=== PATIENT | female | born 1995 | race Caucasian/White ===

== ENCOUNTER 2018-02-10 08:49 | Inpatient (IN) ==
[2018-02-10] MEDS ORDERED: 0.9 % SODIUM CHLORIDE 1,000 ML IV ONE (09:08)
[2018-02-10] MEDS ORDERED: INSULIN REGULAR, HUMAN 1 UNIT/0.01 ML UNIT IV ONE ×2 (09:36→12:29)
--- NOTE | 2018-02-10 09:40 | Emergency Department Note ---
Nausea/Vomiting/Diarrhea HPI - General Chief complaint: Nausea/Vomiting/Diarrhea Stated complaint: Ran out of insulin, vomiting Time Seen by Provider: 02/10/18 09:34 Source: patient Mode of arrival: ambulatory Limitations: no limitations - History of Present Illness HPI Narrative: This is a type I diabetic that ran out of her insulin 3 days ago. He says some nausea and vomiting and abdominal discomfort. The ER her blood sugars over 700 and her TCO2 is 9. She is in DKA we will start treatment for this. She is pretty sedated and sleepy and not talking a lot. She has a lot of track concepcion and they are having a little trouble getting an IV started. - Related Data Home Medications Medication Instructions Recorded Confirmed Gabapentin [Neurontin] 300 mg PO TID 09/10/17 09/10/17 Naprosyn 01/24/18 Previous Rx's Medication Instructions Recorded Accu-Chek 1 each FS ACHS strip 03/20/15 Insulin Glargine, Human [Lantus] 35 unit SQ BID unit 09/03/15 Allergies Allergy/AdvReac Type Severity Reaction Status Date / Time ibuprofen Allergy Mild Hives Verified 02/10/18 08:49 Penicillins Allergy Mild Rash Verified 02/10/18 08:49 Review of Systems All systems ED: reviewed and negative except as stated. Past Medical History - Past Medical History Medical history: Reports: DM, GERD, other (Addiction and substance abuse) Psychiatric history: Reports: anxiety, depression Surgical history ED: Reports: other - Social History smoking status: Current every day smoker Alcohol use: Reports: Occasionally Drug use: Reports: methamphetamine Physical Exam Limitations: no limitations General appearance: in no apparent distress, lethargic Head: atraumatic, normocephalic Eye: Present: normal appearance ENT: mucous membranes dry Neck: Present: normal inspection Chest: Present: normal inspection Respiratory: Present: normal lung sounds bilaterally Cardiovascular: Present: regular rate, normal rhythm, normal heart sounds Abdominal: Present: soft. Absent: distention, tenderness Neurological: Present: alert Psychiatric: Present: normal affect, normal mood Skin: Present: warm, dry, intact Course Vital Signs Temperature 96.5 F L 02/10/18 08:49 Pulse Rate 120 H 02/10/18 08:49 Respiratory Rate 20 02/10/18 08:49 Blood Pressure 129/71 02/10/18 08:49 Pulse Oximetry (%) 100 02/10/18 08:49 Temperature 96.5 F L 02/10/18 08:49 Pulse Rate 127 H 02/10/18 11:27 Respiratory Rate 17 02/10/18 11:27 Blood Pressure 104/60 02/10/18 11:27 Pulse Oximetry (%) 99 02/10/18 11:27 Nausea/Vomiting/Diarrhea - [facility] Narrative Medical decision making narrative: This patient with diabetic ketoacidosis had to have a central line placed in order to get IV access. She then was given normal saline insulin 10 units IV and started on a 7 unit/h drip. Discussed case with Dr. Cotter and she will be admitted to the ICU. - Lab Data Lab results reviewed: Yes I reviewed the patient's lab results. Result diagrams: 02/10/18 09:15 02/10/18 09:15 Lab Results 02/10/18 02/10/18 Range/Units 09:15 09:15 WBC 19.2 H (4.5-11.0) K/mcL RBC 5.11 (4.00-5.20) M/mcL Hgb 15.4 H (12.0-15.0) g/dL Hct 47.5 (36.0-48.0) % POC Hct 51.0 H (36.0-48.0) % MCV 93.1 (80.0-100.0) fL MCH 30.1 (26.0-34.0) pg MCHC 32.3 (31.0-36.0) g/dL RDW 12.9 (11.5-14.5) % Plt Count 628 H (140-440) K/mcL MPV 8.8 (7.4-10.4) fL Gran % 82.0 H (38.0-78.0) % Lymph % (Auto) 15.0 L (15.5-49.0) % [place] % (Auto) 2.2 (1.0-12.0) % Eos % (Auto) 0 (0.0-7.0) % Baso % (Auto) 0.8 (0.0-2.0) % Gran # 15.7 H (1.8-8.0) K/mcL Lymph # (Auto) 2.9 (1.5-4.8) K/mcL [place] # (Auto) 0.4 (0.1-0.9) K/mcL Eos # (Auto) 0 (0.0-0.7) K/mcL Baso # (Auto) 0.2 (0.0-0.3) K/mcL POC Sodium 123 L (133-145) mmol/L Sodium 125 L (133-145) mmol/L POC Potassium 4.9 (3.3-5.1) mmol/L Potassium 5.1 (3.3-5.1) mmol/L POC Chloride 84 L (96-108) mmol/L Chloride 69 L (96-108) mmol/L Carbon Dioxide 6 L* (22-30) mmol/L POC Total CO2 9 L* (22-30) mmol/L Anion Gap TNP POC BUN 38 H (6-20) mg/dl BUN 37 H (6-20) mg/dl Creatinine 1.6 H (0.6-1.1) mg/dl POC Creatinine 1.1 (0.6-1.1) mg/dl GFR Calculation 45 Glucose 1119 H* (70-105) mg/dL POC Glucose > 700 H* (70-105) mg/dL Calcium 10.7 H (8.6-10.4) mg/dl POC WB Ioniz Calcium 1.16 (1.16-1.32) mmol/L Total Bilirubin 1.0 (0.0-1.0) mg/dL AST 23 (0-37) U/l ALT 37 (0-40) U/l Alkaline Phosphatase 199 H (39-117) U/L Total Protein 8.8 H (5.9-8.4) gm/dL Albumin 4.0 (3.2-5.2) gm/dL Globulin 4.8 H (2.2-3.7) gm/dL Albumin/Globulin Ratio 0.8 L (1.0-2.3) Beta-Hydroxybutyrate 15.80 H (< 0.27) mmol/L Disposition Pt seen by REIMBURSEMENT REP/PA only: No Clinical Impression: DKA (diabetic ketoacidoses) Disposition: Xfer As Inpt ([facility]) Condition: Fair Time of Disposition: 11:35
[2018-02-10] MEDS ORDERED: INSULIN REGULAR, HUMAN 50 UNIT in 0.9 % SODIUM CHLORIDE 99.5 ML IV SCH ×2 (09:45→12:57)
[2018-02-10 10:00] LABS: Basophils # (Auto) 0.2 K/mcL (0.0-0.3); Basophils % (Auto) 0.8 % (0.0-2.0); Eosinophils # (Auto) 0 K/mcL (0.0-0.7); Eosinophils % (Auto) 0 % (0.0-7.0); Lymphocytes # (Auto) 2.9 K/mcL (1.5-4.8); Mean Cell Volume 93.1 fL (80.0-100.0); Mean Corpuscular HGB Conc 32.3 g/dL (31.0-36.0); Mean Corpuscular Hemoglobin 30.1 pg (26.0-34.0); Monocytes # (Auto) 0.4 K/mcL (0.1-0.9); Monocytes % (Auto) 2.2 % (1.0-12.0); Platelet Count 628 K/mcL (140-440); RBC 5.11 M/mcL (4.00-5.20); Red Cell Distribution Width 12.9 % (11.5-14.5)
[2018-02-10] MEDS ORDERED: 0.9 % SODIUM CHLORIDE 10 ML SYRINGE IV PRN (10:20)
[2018-02-10] MEDS ORDERED: INSULIN REGULAR, HUMAN 50 UNIT in 0.9 % SODIUM CHLORIDE 99.5 ML IV ONE (10:30)
--- NOTE | 2018-02-10 10:31 | Procedure Note ---
Procedures - Central Line Placement Right SC Consent obtained: verbal consent, written consent Date of Procedure: 02/10/18 Time out performed: Yes Patient placed on monitor/pulse ox: Yes MD prep: mask, sterile gown, sterile gloves, cap Central line prep: 2% Chlorhexidine scrub (X3) Local anesthesia used: lidocaine 1% Amount of anesthesia used (mls): 5 Ultrasound used for placement: No Central line lumen inserted: quad, 16 cm Post procedure: sutured in place, good blood return, all ports aspirated, flushed, capped, sterile dressing applied Post procedure x-ray: other (awaiting results of CXR) Patient tolerated procedure: well, no complications Complications: none Additional comments: emergent call from ED for central MALU for DKA attempts at PIV by er staff unsuccessful ED MD had not attempted CVC at my arrival, pt not on pulse ox, bedrails down and unattended. pt severely dehydrated with AMS
[2018-02-10 10:42] LABS: ALT/SGPT 37 U/l (0-40); Albumin/Globulin Ratio 0.8 (1.0-2.3); Alkaline Phosphatase 199 U/L (39-117); Blood Urea Nitrogen 37 mg/dl (6-20)
[2018-02-10] MEDS ORDERED: LACTATED RINGERS 1,000 ML IV ONE (11:15)
--- NOTE | 2018-02-10 11:37 | Internal Med History&Physical ---
Medical - H&P: [facility] Patient information: Note initiated : 02/10/18 at 11:35 am Service Date, if different from initiated Date: [] Patient: Caryn Leyva a 22 y/o F admitted on for Ran Out Of Insulin, Vomiting. Chief Complaint: [] History of present illness: Ms. Leyva is a 22 year old F With history of DKA and substance abuse who was brought in by her friend. History is obtained from charts and a little bit from patient the patient is poorly responsive this time and will give accurate history. Reportedly patient ran out of insulin 3 days ago and in discussing this with the patient sounds like she was trying to get a hold of the physician. She does admit to using methamphetamines IV 3 days ago. She presented ED after also having some nausea vomiting. She is quite lethargic. Her blood glucose was 1100 with a bicarb of 6. She has a significant needle track marking in her upper extremities. She says she also uses legs and possibly neck at one point. Multiple peripheral IV sticks were attempted and subsequently a central line was placed by anesthesia. She was given IV fluid bolus and started on insulin drip. Review of Systems: Difficult to obtain given patient's current lethargic state. Medical - H&P: H Medical history: Medical History DKA (diabetic ketoacidoses) (Resolved) DKA (diabetic ketoacidoses) (Acute) Severe sepsis (Resolved) Perianal abscess (Acute) Perianal cellulitis (Acute) Methamphetamine abuse (Chronic) Cellulitis (Acute) Wound check, abscess (Acute) Diabetes type I (Acute) Wound disruption, post-op, skin (Acute) test negative (Acute) Vomiting (Acute) Surgical history: Denies any Family history unable to obtain Social History Smokes 1 pack of cigarettes per day uses methamphetamine IV lives on the street Medical - H&P: Meds Home Medications Medication Instructions Recorded Confirmed Type Accu-Chek 1 each FS ACHS strip 03/20/15 09/10/17 Rx Insulin Glargine, Human [Lantus] 35 unit SQ BID unit 09/03/15 09/10/17 Rx Gabapentin [Neurontin] 300 mg PO TID 09/10/17 09/10/17 History Naprosyn 01/24/18 History Allergies Allergy/AdvReac Type Severity Reaction Status Date / Time ibuprofen Allergy Mild Hives Verified 02/10/18 08:49 Penicillins Allergy Mild Rash Verified 02/10/18 08:49 Medical - H&P: Exam - Constitutional Vitals: Temp Pulse Resp BP Pulse Ox 96.5 F L 127 H 17 104/60 99 02/10/18 08:49 02/10/18 11:27 02/10/18 11:27 02/10/18 11:27 02/10/18 11:27 Exam: General: Lethargic but arousable, disheveled Eyes/N/T: EOMI, PEERL, DMM Head/Neck: neck supple, normocephalic atraumatic CV: RRR, No murmurs, normal s1/s2 Pulm: Clear b/l, no wheezing/rhonchi/rales Abd: soft, nontender, +BS x4 Ext: no clubbing/cyanosis/edema Neuro: Lethargic but follows commands and is arousable but quickly falls back asleep moves all extremities, CN 2-12 grossly intact, sensations intact b/l upper/lower Skin: warm/dry, significant needle track concepcion bilateral upper extremities Medical - H&P: Reslt - Labs CBC & Chem 7: 02/10/18 09:15 02/10/18 09:15 Labs: Short CBC 02/10/18 Range/Units 09:15 WBC 19.2 H (4.5-11.0) K/mcL Hgb 15.4 H (12.0-15.0) g/dL Hct 47.5 (36.0-48.0) % Plt Count 628 H (140-440) K/mcL BMP 02/10/18 09:15 Sodium 125 L Potassium 5.1 Chloride 69 L Carbon Dioxide 6 L* BUN 37 H Creatinine 1.6 H Glucose 1119 H* Calcium 10.7 H Liver Function 02/10/18 Range/Units 09:15 Total Bilirubin 1.0 (0.0-1.0) mg/dL AST 23 (0-37) U/l ALT 37 (0-40) U/l Alkaline Phosphatase 199 H (39-117) U/L Albumin 4.0 (3.2-5.2) gm/dL Medical - H&P: A/P - Narrative A/P Narrative: A: *DKA: Secondary to running out of home insulin *Encephalopathy: Secondary to above *Substance abuse: With methamphetamines IV *HINA: *pseudohyponatremia: *Neuropathy * P: -DKA insulin drip -Rest of IV fluid hydration -UDS pending -PRN Ativan for methamphetamine withdrawal -Monitor electrolytes closely - -Case management for substance abuse programs and options for living -Smoking cessation counseling -ppx: Lovenox
--- NOTE | 2018-02-10 12:55 | XRay Report ---
INDICATION: Right central venous catheter placement TECHNIQUE: AP chest x-ray,portable upright COMPARISON: Previous examination dated 08/28/2015 FINDINGS:Right central venous catheter with its tip in the superior vena cava. No pneumothorax. Lungs are negative. No parenchymal infiltrate or mass. Heart size and vascularity are normal. Susy and mediastinum are negative. IMPRESSION: Right central venous catheter in the superior vena cava. Interpreted and Authenticated by: Brayan Wilder 02/10/18
[2018-02-10] MEDS ORDERED: ACETAMINOPHEN 325 MG TABLET PO PRN (12:57)
[2018-02-10] MEDS: 0.9 % SODIUM CHLORIDE 10 ML SYRINGE IV SCH ×5 (13:00→20:14)
[2018-02-10] MEDS: LACTATED RINGERS 1,000 ML IV SCH ×2 (13:00→17:04)
[2018-02-10 13:25] LABS: Appearance,Urine CLOUDY; Bacteria,Urine FEW /hpf (0); Bilirubin,Urine NEG (NEG); Color,Urine YELLOW; Glucose,Urine (UA) >=500 mg/dL (NEG); Leukocyte Esterase,Urine 75 /uL (NEG); Mucus,Urine FEW /hpf (0); Protein,Urine 30 mg/dL (NEG); Urine Amorphous Crystals FEW /hpf (0); Urine Blood 0.03 mg/dL (<0.03); Urine RBC 1 /hpf (0-1); Urine Squamous Epithelial Cell 8 /hpf (0-4); Urine WBC 8 /hpf (0-4); Urobilinogen,Urine NEG (NEG)
[2018-02-10 13:27] LABS: Amphetamine Screen,Urine NONE DETECTED (NONDETECTED); Benzodiazepines Screen,Urine NONE DETECTED (NONDETECTED); Cocaine Screen,Urine NONE DETECTED (NONDETECTED); Opiate Screen,Urine NONE DETECTED (NONDETECTED); Oxycodone, Urine Screen NONE DETECTED (NONDETECTED)
[2018-02-10 13:35] LABS: ABG Methemoglobin 0.3 % (0.4-1.5); VBG HCO3 14.5 mmol/L (24.0-28.0); VBG Oxygen Saturation 90.3 % (40.0-70.0); VBG PCO2 28.6 mmHg (41.0-51.0); VBG PH 7.32 U (7.32-7.42); VBG PO2 71 mmHg (25-40); VBG Total CO2 15.3 mmol/L (25.0-29.0)
[2018-02-10 14:27] LABS: ALT/SGPT 39 U/l (0-40); Albumin 3.9 gm/dL (3.2-5.2); Albumin/Globulin Ratio 0.9 (1.0-2.3); Alkaline Phosphatase 175 U/L (39-117); Bilirubin,Direct < 0.2 mg/dL (0.0-0.3); Blood Urea Nitrogen 40 mg/dl (6-20); Gamma Glutamyl Transpeptidase 46 U/L (5-36); Uric Acid 12.4 mg/dL (2.5-8.0)
[2018-02-10 14:40] LABS: Appearance,Urine CLEAR; Bacteria,Urine 0 /hpf (0); Bilirubin,Urine NEG (NEG); Color,Urine YELLOW; Glucose,Urine (UA) >=500 mg/dL (NEG); Leukocyte Esterase,Urine NEG /uL (NEG); Mucus,Urine FEW /hpf (0); Other Casts,Urine FEW /lpf (0); Protein,Urine NEG (NEG); Urine Blood NEG mg/dL (<0.03); Urine RBC < 1 /hpf (0-1); Urine Squamous Epithelial Cell 0 /hpf (0-4); Urine WBC 4 /hpf (0-4); Urobilinogen,Urine NEG (NEG)
[2018-02-10 17:20] LABS: ABG Methemoglobin 0.3 % (0.4-1.5); VBG Base Excess -5.9 (-2.0-2.0); VBG HCO3 18.5 mmol/L (24.0-28.0); VBG PCO2 33.3 mmHg (41.0-51.0); VBG PH 7.36 U (7.32-7.42); VBG PO2 73 mmHg (25-40); VBG Total CO2 19.5 mmol/L (25.0-29.0)
[2018-02-10 17:32] LABS: Estimated Average Glucose(eAG) 430 mg/dL; Hemoglobin A1C > 16.6 % HGB (4.0-6.0)
[2018-02-10] MEDS: DEXTROSE 5%-1/2NS 1,000 ML IV SCH ×2 (19:06→22:07)
[2018-02-10] MEDS ORDERED: LORazepam 2 MG/ML VIAL IV PRN (19:41)
[2018-02-10] MEDS: INSULIN REGULAR, HUMAN 50 UNIT in 0.9 % SODIUM CHLORIDE 99.5 ML IV SCH (20:00)
[2018-02-10] MEDS ORDERED: 0.9 % SODIUM CHLORIDE 10 ML SYRINGE IV SCH (21:00)
[2018-02-10] MEDS: 0.9 % SODIUM CHLORIDE 1,000 ML IV SCH ×2 (21:01→22:10)
[2018-02-10] MEDS ORDERED: POTASSIUM CHLORIDE 20 MEQ TABLET PO ONE ×2 (21:08→21:31)
[2018-02-10] MEDS ORDERED: HALOPERIDOL LACTATE 5 MG/ML VIAL ONE (21:39)
[2018-02-10] MEDS ORDERED: HALOPERIDOL LACTATE 5 MG/ML VIAL IV ONE (21:45)
[2018-02-10] MEDS ORDERED: POTASSIUM CHLORIDE 40 MEQ in DEXTROSE 5% IN WATER 250 ML IV ONE (22:05)
[2018-02-10] MEDS ORDERED: POTASSIUM CHLORIDE 20 MEQ/10 ML VIAL IV ONE (22:32)
[2018-02-11] MEDS: DEXTROSE 5%-1/2NS 1,000 ML IV SCH ×4 (02:52→19:28)
[2018-02-11] MEDS ORDERED: INSULIN REGULAR, HUMAN 1 UNIT/0.01 ML UNIT ONE (03:04)
[2018-02-11] MEDS: INSULIN REGULAR, HUMAN 50 UNIT in 0.9 % SODIUM CHLORIDE 99.5 ML IV SCH ×2 (03:07→08:10)
[2018-02-11 03:58] LABS: Basophils # (Auto) 0 K/mcL (0.0-0.3); Basophils % (Auto) 0.1 % (0.0-2.0); Eosinophils # (Auto) 0.2 K/mcL (0.0-0.7); Eosinophils % (Auto) 0.8 % (0.0-7.0); Lymphocytes # (Auto) 3.9 K/mcL (1.5-4.8); Mean Cell Volume 89.5 fL (80.0-100.0); Mean Corpuscular HGB Conc 33.9 g/dL (31.0-36.0); Mean Corpuscular Hemoglobin 30.3 pg (26.0-34.0); Monocytes % (Auto) 5.1 % (1.0-12.0); Platelet Count 518 K/mcL (140-440); RBC 4.21 M/mcL (4.00-5.20); Red Cell Distribution Width 12.7 % (11.5-14.5)
[2018-02-11 04:21] LABS: ALT/SGPT 28 U/l (0-40); Albumin 3.1 gm/dL (3.2-5.2); Albumin/Globulin Ratio 0.9 (1.0-2.3); Alkaline Phosphatase 123 U/L (39-117); Bilirubin,Direct < 0.2 mg/dL (0.0-0.3); Blood Urea Nitrogen 19 mg/dl (6-20); Gamma Glutamyl Transpeptidase 35 U/L (5-36); Uric Acid 9.5 mg/dL (2.5-8.0)
[2018-02-11] MEDS: 0.9 % SODIUM CHLORIDE 10 ML SYRINGE IV SCH ×3 (05:06→21:44)
[2018-02-11] MEDS ORDERED: cefTRIAXone 2 GM VIAL IM ONE (05:07)
[2018-02-11] MEDS ORDERED: SODIUM PHOSPHATE 30 MMOL in DEXTROSE 5% IN WATER 500 ML IV ONE (07:09)
--- NOTE | 2018-02-11 07:13 | Internal Med Progress Note ---
Medical - PN: Subj Patient information: Note initiated : 02/11/18 at 7:05 am Service Date, if different from initiated Date: [] Patient: Caryn Leyva a 22 y/o F admitted on 02/10/18 for Ran Out Of Insulin, Vomiting. Chief Complaint: [] Interval history: Ms. Leyva is a 22 year old F With history of DKA and substance abuse who was brought in by her friend. History is obtained from charts and a little bit from patient the patient is poorly responsive this time and will give accurate history. Reportedly patient ran out of insulin 3 days ago and in discussing this with the patient sounds like she was trying to get a hold of the physician. She does admit to using methamphetamines IV 3 days ago. She presented ED after also having some nausea vomiting. She is quite lethargic. Her blood glucose was 1100 with a bicarb of 6. She has a significant needle track marking in her upper extremities. She says she also uses legs and possibly neck at one point. Multiple peripheral IV sticks were attempted and subsequently a central line was placed by anesthesia. She was given IV fluid bolus and started on insulin drip. 02/11 Sleeping this morning difficult to arouse. Was refusing to talk to nurses earlier. When they try to open her eyes she closed them tighter. Was up pulling at lines she had to be placed in soft restraints and given some Haldol last night. Possible herpetic lesions in the genitalia. Unable to gather review review of systems - Constitutional Vitals: Vital Signs Temp Pulse Resp BP Pulse Ox 99.3 F H 110 H 15 119/59 99 02/11/18 00:00 02/11/18 06:01 02/11/18 06:01 02/11/18 06:01 02/11/18 06:01 Period Temp Pulse Resp BP Sys/Bartlett Pulse Ox Last 24 Hr 96.5 F-99.3 F 108-130 -20 96-131/50-85 97-100 Intake and Output 02/10/18 02/11/18 02/11/18 21:59 05:59 13:59 Intake Total 3860 / 3860 1318 / 1318 Output Total 2130 / 2130 584 / 584 Balance 1730 / 1730 734 / 734 Weight 70.579 kg Intake & Output: Intake & Output 02/10/18 02/11/18 02/11/18 21:59 05:59 13:59 Intake Total 3860 / 3860 1318 / 1318 Output Total 2130 / 0 584 / 584 Balance 1730 / 1730 734 / 734 Weight 70.579 kg Intake: IV 2059 1318 / 1318 Sodium Chloride 0.9% 1,000 ml @ 275 / 275 250 mls/hr IV .Q4H MAUDE Rx#: [id number] Dextrose 5%-1/2Ns IV Solution 1 950 / 950 ,000 ml @ 200 mls/hr IV .Q5H MAUDE Rx#:[id number] HumuLIN R 50 UNIT In Sodium 26 / 26 93 / 93 Chloride 0.9% 99.5 ml @ As Directed IV Q12H MAUDE Rx#: [id number] Lactated Ringers 1,000 ml @ 250 1000 / 1000 mls/hr IV .Q4H MAUDE Rx#: [id number] Oral 1800 / 1800 Output: Urine Catheter Amount 0 / 2129 584 / 584 Other: Urine Appearance Clear Cloudy Uretheral ([place]) Clear Cloudy Urine Color Bright Yellow Pale Uretheral ([place]) Bright Yellow Pale Urine Odor Normal Uretheral ([place]) Normal Exam: General: Lethargic sleeping, status post sedation Eyes/N/T: PEERL, Head/Neck: neck supple, CV: RRR, No murmurs, normal s1/s2 Pulm: Clear b/l, no wheezing/rhonchi/rales Abd: soft, nontender, +BS x4 Ext: no clubbing/cyanosis/edema Neuro: Lethargic at this time unable to fully assess. she does spontaneously move all extremities pupils equal equal round reactive Skin: warm/dry, significant needle track concepcion bilateral upper extremities and lowe extremities Medical - PN: Obj Da - Labs CBC & Chem 7: 02/11/18 03:21 02/11/18 03:21 Labs: Abnormal Lab Results 02/11/18 02/11/18 02/10/18 03:21 03:21 20:07 WBC 20.4 H Hgb POC Hct Plt Count 518 H MPV 7.1 L Gran % Lymph % (Auto) Gran # 15.[address] [place] # (Auto) 1.0 H ABG Methemoglobin VBG pCO2 VBG pO2 VBG HCO3 VBG Total CO2 VBG O2 Saturation VBG Base Excess VBG Lactic Acid Carboxyhemoglobin POC Sodium Sodium Potassium 3.2 L POC Chloride Chloride 93 L Carbon Dioxide POC Total CO2 Anion Gap 21.0 H POC BUN BUN Creatinine Glucose 211 H POC Glucose Hemoglobin A1c Uric Acid 9.5 H Calcium 8.4 L Phosphorus 1.4 L Magnesium GGT Alkaline Phosphatase 123 H Total Protein Albumin 3.1 L Globulin Albumin/Globulin Ratio 0.9 L Triglycerides 157 H Beta-Hydroxybutyrate Urine Protein Urine Glucose (UA) Urine Ketones Urine Occult Blood Ur Leukocyte Esterase Urine WBC Ur Squamous Epith Cells Amorphous Crystals Urine Bacteria Other Casts 02/10/18 02/10/18 02/10/18 16:58 14:15 13:29 WBC Hgb POC Hct Plt Count MPV Gran % Lymph % (Auto) Gran # [place] # (Auto) ABG Methemoglobin 0.3 L VBG pCO2 33.3 L VBG pO2 73 H VBG HCO3 18.5 L VBG Total CO2 19.5 L VBG O2 Saturation 90.0 H VBG Base Excess -5.9 L VBG Lactic Acid Carboxyhemoglobin 2.6 H POC Sodium Sodium Potassium POC Chloride Chloride 85 L Carbon Dioxide 13 L POC Total CO2 Anion Gap 40.0 H POC BUN BUN 40 H Creatinine 1.6 H Glucose 644 H* POC Glucose Hemoglobin A1c Uric Acid 12.4 H Calcium Phosphorus 6.1 H* Magnesium GGT 46 H Alkaline Phosphatase 175 H Total Protein Albumin Globulin 4.2 H Albumin/Globulin Ratio 0.9 L Triglycerides 388 H Beta-Hydroxybutyrate Urine Protein Urine Glucose (UA) >=500 A Urine Ketones 80 A Urine Occult Blood Ur Leukocyte Esterase Urine WBC Ur Squamous Epith Cells Amorphous Crystals Urine Bacteria Other Casts Few A 02/10/18 02/10/18 02/10/18 13:10 13:10 12:49 WBC Hgb POC Hct Plt Count MPV Gran % Lymph % (Auto) Gran # [place] # (Auto) ABG Methemoglobin 0.3 L VBG pCO2 28.6 L VBG pO2 71 H VBG HCO3 14.5 L VBG Total CO2 15.3 L VBG O2 Saturation 90.3 H VBG Base Excess -10.0 L VBG Lactic Acid Carboxyhemoglobin 2.9 H POC Sodium Sodium Potassium POC Chloride Chloride 85 L Carbon Dioxide 14 L POC Total CO2 Anion Gap 40.0 H POC BUN BUN Creatinine Glucose POC Glucose Hemoglobin A1c Uric Acid Calcium Phosphorus Magnesium GGT Alkaline Phosphatase Total Protein Albumin Globulin Albumin/Globulin Ratio Triglycerides Beta-Hydroxybutyrate Urine Protein 30 A Urine Glucose (UA) >=500 A Urine Ketones 80 A Urine Occult Blood 0.03 A Ur Leukocyte Esterase 75 A Urine WBC 8 H Ur Squamous Epith Cells 8 H Amorphous Crystals Few A Urine Bacteria Few A Other Casts 02/10/18 02/10/18 02/10/18 09:15 09:15 09:08 WBC 19.2 H Hgb 15.4 H POC Hct 51.0 H Plt Count 628 H MPV Gran % 82.0 H Lymph % (Auto) 15.0 L Gran # 15.[address] [place] # (Auto) ABG Methemoglobin VBG pCO2 VBG pO2 VBG HCO3 VBG Total CO2 VBG O2 Saturation VBG Base Excess VBG Lactic Acid Carboxyhemoglobin POC Sodium 123 L Sodium 125 L Potassium POC Chloride 84 L Chloride 69 L Carbon Dioxide 6 L* POC Total CO2 9 L* Anion Gap POC BUN 38 H BUN 37 H Creatinine 1.6 H Glucose 1119 H* POC Glucose > 700 H* Hemoglobin A1c > 16.6 H Uric Acid Calcium 10.7 H Phosphorus Magnesium GGT Alkaline Phosphatase 199 H Total Protein 8.8 H Albumin Globulin 4.8 H Albumin/Globulin Ratio 0.8 L Triglycerides Beta-Hydroxybutyrate 15.80 H Urine Protein Urine Glucose (UA) Urine Ketones Urine Occult Blood Ur Leukocyte Esterase Urine WBC Ur Squamous Epith Cells Amorphous Crystals Urine Bacteria Other Casts 02/10/18 02/10/18 09:08 09:08 WBC Hgb POC Hct Plt Count MPV Gran % Lymph % (Auto) Gran # [place] # (Auto) ABG Methemoglobin VBG pCO2 VBG pO2 VBG HCO3 VBG Total CO2 VBG O2 Saturation VBG Base Excess VBG Lactic Acid 3.2 H Carboxyhemoglobin POC Sodium Sodium Potassium POC Chloride Chloride Carbon Dioxide POC Total CO2 Anion Gap POC BUN BUN Creatinine Glucose POC Glucose Hemoglobin A1c Uric Acid Calcium Phosphorus 11.8 H* Magnesium 2.9 H GGT Alkaline Phosphatase Total Protein Albumin Globulin Albumin/Globulin Ratio Triglycerides Beta-Hydroxybutyrate Urine Protein Urine Glucose (UA) Urine Ketones Urine Occult Blood Ur Leukocyte Esterase Urine WBC Ur Squamous Epith Cells Amorphous Crystals Urine Bacteria Other Casts Meds: Medications Acetaminophen (Tylenol) 650 mg PO Q6HP PRN PRN Reason: PAIN/FEVER > 101 Diagnostic Test (Pha) (Accu-Chek) 1 each FS Q1 MAUDE Last Admin: 02/11/18 05:58 Dose: 1 each Enoxaparin Sodium (Lovenox) 40 mg SQ DAILY [facility] Insulin Human Regular 50 unit/ (Sodium Chloride) 100 mls @ 0 mls/hr IV Q12H MAUDE ; Protocol Last Admin: 02/11/18 03:07 Dose: 6.5 unit/hr, 13 mls/hr Dextrose/Sodium Chloride (Dextrose 5%-1/2ns Iv Solution) 1,000 mls @ 200 mls/ hr IV .Q5H MAUDE Last Admin: 02/11/18 02:52 Dose: 200 mls/hr Lorazepam (Ativan) 1 mg IV Q4HP PRN PRN Reason: Anxiety/Sedation & Meth W/D Last Admin: 02/11/18 00:10 Dose: 1 mg Sodium Chloride (Saline Flush) 10 ml IV Q8 MAUDE Last Admin: 02/11/18 05:06 Dose: Not Given - ABG Interpretation ABG results: 02/10/18 02/10/18 13:10 16:58 ABG Methemoglobin 0.3 L 0.3 L VBG pH 7.32 7.36 VBG pCO2 28.6 L 33.3 L VBG pO2 71 H 73 H VBG HCO3 14.5 L 18.5 L VBG Total CO2 15.3 L 19.5 L VBG O2 Saturation 90.3 H 90.0 H VBG Base Excess -10.0 L -5.9 L Medical - PN: A/P - Time Spent With Patient Total time spent is greater than 50% in coordination of care (as documented) at patient's floor/unit and/or counseling patient: - Narrative A/P Narrative: A: *DKA: Secondary to running out of home insulin -A1c>16 *Encephalopathy: Secondary to above *Substance abuse: With methamphetamines IV -UDS unremarkable, pt admitted to using meth 3 days ago *HINA: resolved *Neuropathy *hypophos: P: -DKA insulin drip wean off to home insulin and SSI -IVF's -PRN Ativan for methamphetamine withdrawal -Monitor electrolytes closely -med clarify -Case management for substance abuse programs and options for living -Smoking cessation counseling -ppx: Lovenox Medical - PN: Qual - VTE Deep Vein Thrombosis/Pulmonary Embolism Present on Admission: No
[2018-02-11] MEDS ORDERED: INSULIN GLARGINE, HUMAN 1 UNIT/0.01 ML SQ ONE (07:56)
[2018-02-11 08:21] LABS: Band Neutrophils % 8 % (0-10); Basophils % (Manual) 1 % (0-2); Eosinophils % (Manual) 2 % (0-7); Lymphocytes % 19 % (15-49); Monocytes % (Manual) 2 % (1-12); Platelet Estimate INCREASED (NORMAL); RBC Morphology NORMAL (NORMAL); Segmented Neutrophils % 67 % (38-78)
[2018-02-11] MEDS: 0.45 % SODIUM CHLORIDE 1,000 ML IV SCH (08:43)
[2018-02-11] MEDS: ENOXAPARIN 40 MG/0.4 ML SYRINGE SQ SCH (09:41)
--- NOTE | 2018-02-11 10:16 | Discharge Summary ---
Medical - DS: Prov Patient information: Note initiated : 02/11/18 at 10:14 am Service Date, if different from initiated Date: [] Patient: Caryn Leyva 22 y/o F admitted on 02/10/18 for Ran Out Of Insulin, Vomiting. Chief Complaint: [] Date of admission: 02/10/18 12:57 Discharge date: 02/13/18 Consults: 02/10/18 Consult to Physician [CONS] Stat Comment: Consulting Provider: [place] Deal Reason For Exam: Physician to Consult Medical - DS: Meds - Discharge Medications Prescriptions: Accu-Chek 1 each FS ACHS #90 strip Insulin Glargine, Human [Lantus] 40 unit SQ BID #1 unit Novolog Flexpen See Protocol SC ACHS #4 valACYclovir [Valtrex] 1,000 mg PO BID #12 tab Active and Home Medications: Home Medications Accu-Chek 1 each FS ACHS strip 03/20/15 [Rx Confirmed 02/11/18 Last Taken 12/24] Gabapentin [Neurontin] 300 mg PO TID 09/10/17 [History Confirmed 02/11/18 Last Taken 11/23/17] Naprosyn PRN 01/24/18 [History Last Taken 01/23/18] Insulin Glargine, Human [Lantus] 30 unit SQ BID 02/11/18 [History Confirmed Last Taken Unknown] Novolog Flexpen See Protocol 02/11/18 [History Last Taken Unknown] Medical - DS: Hosp Hospital course: Ms. Leyva is a 22 year old F With history of DKA and substance abuse who was brought in by her friend. History is obtained from charts and a little bit from patient the patient is poorly responsive this time and will give accurate history. Reportedly patient ran out of insulin 3 days ago and in discussing this with the patient sounds like she was trying to get a hold of the physician. She does admit to using methamphetamines IV 3 days ago. She presented ED after also having some nausea vomiting. She is quite lethargic. Her blood glucose was 1100 with a bicarb of 6. She has a significant needle track marking in her upper extremities. She says she also uses legs and possibly neck at one point. Multiple peripheral IV sticks were attempted and subsequently a central line was placed by anesthesia. She was given IV fluid bolus and started on insulin drip. 02/11 Sleeping this morning difficult to arouse. Was refusing to talk to nurses earlier. When they try to open her eyes she closed them tighter. Was up pulling at lines she had to be placed in soft restraints and given some Haldol last night. Possible herpetic lesions in the genitalia. Discharge diagnosis: DKA secondary to missed medications methamphetamines abuse AK I encephalopa - Time Spent with Patient Total time spent providing and/or coordinating discharge services: Greater than 30 minutes Medical - DS: Exam - Constitutional Vitals: Vital Signs Temp Pulse Pulse Resp BP BP Pulse Ox 02/11/18 10:08 101 H 16 99 02/11/18 10:01 102 H 15 110/67 99 02/11/18 09:01 105 H 16 109/62 98 02/11/18 08:01 105 H 15 113/65 98 02/11/18 07:01 114 H 17 123/74 98 02/11/18 06:01 110 H 15 119/59 99 02/11/18 05:01 110 H 16 121/63 99 02/11/18 04:00 15 108/69 100 02/11/18 03:01 110 H 14 111/72 99 02/11/18 02:01 116 H 17 101/68 100 02/11/18 01:00 116 H 17 112/65 99 02/11/18 00:14 122 H 12 99 02/11/18 00:00 99.3 F H 117 H 16 110/70 99 02/10/18 23:00 115 H 15 121/71 99 02/10/18 22:00 13 124/80 99 02/10/18 21:01 115 H 15 118/77 100 02/10/18 20:41 112 H 15 100 02/10/18 20:01 108 H 12 112/80 100 02/10/18 20:00 98.7 F 02/10/18 19:01 117 H 14 128/81 100 02/10/18 18:01 16 107/85 100 02/10/18 17:00 125 H 18 115/65 98 02/10/18 16:00 98.1 F 120 H 16 124/73 97 02/10/18 15:00 122 H 17 119/72 97 02/10/18 14:00 128 H 15 108/69 100 02/10/18 13:12 129 H 15 100/68 99 02/10/18 13:06 96.5 F L 127 H 17 104/60 99 02/10/18 13:00 98.3 F 130 H 16 100/68 98 02/10/18 12:57 98.3 F 16 100/68 98 02/10/18 11:27 127 H 17 104/60 99 02/10/18 10:46 123 H 17 104/60 100 02/10/18 10:31 125 H 19 96/53 98 02/10/18 10:25 125 H 16 99 02/10/18 10:16 121 H 18 98/50 100 Intake and Output 02/10/18 02/11/18 02/11/18 21:59 05:59 13:59 Intake Total 3860 / 3860 1318 / 1318 1065 / 1065 Output Total 2130 / 0 584 / 584 50 / 50 Balance 1730 / 1730 734 / 734 1015 / 1015 Intake: IV 2059 / 2059 1318 / 1318 1065 / 1065 Sodium Chloride 0.9% 1,000 ml @ 275 / 275 250 mls/hr IV .Q4H MAUDE Rx#: [id number] Dextrose 5%-1/2Ns IV Solution 1 950 / 950 1000 / 1000 ,000 ml @ 200 mls/hr IV .Q5H MAUDE Rx#:[id number] HumuLIN R 50 UNIT In Sodium 26 / 26 93 / 93 65 / 65 Chloride 0.9% 99.5 ml @ As Directed IV Q12H MAUDE Rx#: [id number] Lactated Ringers 1,000 ml @ 250 1000 / 1000 mls/hr IV .Q4H MAUDE Rx#: [id number] Oral 1800 / 1800 0 / 0 Output: Urine Catheter Amount 2130 / 2130 584 / 584 50 / 50 Other: Urine Appearance Clear Cloudy Cloudy Uretheral ([place]) Clear Cloudy Cloudy Urine Color Bright Yellow Pale Dark Yellow Uretheral ([place]) Bright Yellow Pale Dark Yellow Urine Odor Normal Uretheral ([place]) Normal Weight 70.579 kg Medical - DS: Data Labs on day of discharge: Labs from last 24 hours 02/11/18 02/11/18 02/11/18 09:44 03:21 03:21 WBC RBC Hgb Hct MCV MCH MCHC RDW Plt Count MPV Gran % Lymph % (Auto) [place] % (Auto) Eos % (Auto) Baso % (Auto) Gran # Lymph # (Auto) [place] # (Auto) Eos # (Auto) Baso # (Auto) Total Counted 100 Seg Neutrophils % 67 Band Neutrophils % 8 Lymphocytes % 19 Monocytes % (Manual) 2 Eosinophils % (Manual) 2 Basophils % (Manual) 1 Reactive Lymphocytes 1 Platelet Estimate Increased RBC Morphology Normal ABG Methemoglobin VBG pH VBG pCO2 VBG pO2 VBG HCO3 VBG Total CO2 VBG O2 Saturation VBG Base Excess VBG Lactic Acid Carboxyhemoglobin Total Hemoglobin O2 Delivery Level Sodium 135 Potassium 3.9 Chloride 98 Carbon Dioxide 28 Anion Gap 9.0 BUN 19 Creatinine 0.9 GFR Calculation 90 Glucose 211 H Hemoglobin A1c Estim Average Glucose Uric Acid 9.5 H Calcium 8.4 L Phosphorus 1.4 L Magnesium 1.6 Total Bilirubin 0.7 Direct Bilirubin < 0.2 GGT 35 AST 14 ALT 28 Alkaline Phosphatase 123 H Lactate Dehydrogenase 143 Total Protein 6.4 Albumin 3.1 L Globulin 3.3 Albumin/Globulin Ratio 0.9 L Triglycerides 157 H Beta-Hydroxybutyrate TSH Urine Color Pending Urine Appearance Pending Urine pH Pending Ur Specific [place] Pending Urine Protein Pending Urine Glucose (UA) Pending Urine Ketones Pending Urine Occult Blood Pending Urine Nitrate Pending Urine Bilirubin Pending Urine Urobilinogen Pending Ur Leukocyte Esterase Pending Urine RBC Urine WBC Ur Squamous Epith Cells Amorphous Crystals Urine Bacteria Other Casts Urine Mucus Ur Culture Indicated? Urine Opiates Screen Ur Opiates Confirm Ur Oxycodone Screen Urine Methadone Screen Ur Methadone Confirm Ur Barbiturates Screen Ur Barbiturate Confirm Ur Phencyclidine Scrn Urine PCP Confirm Ur Amphetamines Screen U Amphetamines Confirm U Benzodiazepines Scrn U Benzodiazepine Confm Urine Cocaine Screen Urine Cocaine Confirm U Cannabinoids Confirm U Marijuana (THC) Screen 02/11/18 02/10/18 02/10/18 03:21 20:07 16:58 WBC 20.4 H RBC 4.21 Hgb 12.8 Hct 37.7 MCV 89.5 MCH 30.3 MCHC 33.9 RDW 12.7 Plt Count 518 H MPV 7.1 L Gran % 75.0 Lymph % (Auto) 19.0 [place] % (Auto) 5.1 Eos % (Auto) 0.8 Baso % (Auto) 0.1 Gran # 15.3 H Lymph # (Auto) 3.9 [place] # (Auto) 1.0 H Eos # (Auto) 0.2 Baso # (Auto) 0 Total Counted Seg Neutrophils % Band Neutrophils % Lymphocytes % Monocytes % (Manual) Eosinophils % (Manual) Basophils % (Manual) Reactive Lymphocytes Platelet Estimate RBC Morphology ABG Methemoglobin 0.3 L VBG pH 7.36 VBG pCO2 33.3 L VBG pO2 73 H VBG HCO3 18.5 L VBG Total CO2 19.5 L VBG O2 Saturation 90.0 H VBG Base Excess -5.9 L VBG Lactic Acid Carboxyhemoglobin 2.6 H Total Hemoglobin 13.7 O2 Delivery Level Not Reportable Sodium 137 Potassium 3.2 L Chloride 93 L Carbon Dioxide 23 Anion Gap 21.0 H BUN Creatinine GFR Calculation Glucose Hemoglobin A1c Estim Average Glucose Uric Acid Calcium Phosphorus Magnesium 1.6 Total Bilirubin Direct Bilirubin GGT AST ALT Alkaline Phosphatase Lactate Dehydrogenase Total Protein Albumin Globulin Albumin/Globulin Ratio Triglycerides Beta-Hydroxybutyrate TSH Urine Color Urine Appearance Urine pH Ur Specific [place] Urine Protein Urine Glucose (UA) Urine Ketones Urine Occult Blood Urine Nitrate Urine Bilirubin Urine Urobilinogen Ur Leukocyte Esterase Urine RBC Urine WBC Ur Squamous Epith Cells Amorphous Crystals Urine Bacteria Other Casts Urine Mucus Ur Culture Indicated? Urine Opiates Screen Ur Opiates Confirm Ur Oxycodone Screen Urine Methadone Screen Ur Methadone Confirm Ur Barbiturates Screen Ur Barbiturate Confirm Ur Phencyclidine Scrn Urine PCP Confirm Ur Amphetamines Screen U Amphetamines Confirm U Benzodiazepines Scrn U Benzodiazepine Confm Urine Cocaine Screen Urine Cocaine Confirm U Cannabinoids Confirm U Marijuana (THC) Screen 02/10/18 02/10/18 02/10/18 14:15 13:29 13:10 WBC RBC Hgb Hct MCV MCH MCHC RDW Plt Count MPV Gran % Lymph % (Auto) [place] % (Auto) Eos % (Auto) Baso % (Auto) Gran # Lymph # (Auto) [place] # (Auto) Eos # (Auto) Baso # (Auto) Total Counted Seg Neutrophils % Band Neutrophils % Lymphocytes % Monocytes % (Manual) Eosinophils % (Manual) Basophils % (Manual) Reactive Lymphocytes Platelet Estimate RBC Morphology ABG Methemoglobin 0.3 L VBG pH 7.32 VBG pCO2 28.6 L VBG pO2 71 H VBG HCO3 14.5 L VBG Total CO2 15.3 L VBG O2 Saturation 90.3 H VBG Base Excess -10.0 L VBG Lactic Acid Carboxyhemoglobin 2.9 H Total Hemoglobin 14.5 O2 Delivery Level Not Reportable Sodium 138 Potassium 3.6 Chloride 85 L Carbon Dioxide 13 L Anion Gap 40.0 H BUN 40 H Creatinine 1.6 H GFR Calculation 45 Glucose 644 H* Hemoglobin A1c Estim Average Glucose Uric Acid 12.4 H Calcium 9.9 Phosphorus 6.1 H* Magnesium 2.5 Total Bilirubin 0.7 Direct Bilirubin < 0.2 GGT 46 H AST 17 ALT 39 Alkaline Phosphatase 175 H Lactate Dehydrogenase 164 Total Protein 8.1 Albumin 3.9 Globulin 4.2 H Albumin/Globulin Ratio 0.9 L Triglycerides 388 H Beta-Hydroxybutyrate TSH Urine Color Yellow Urine Appearance Clear Urine pH 5.0 Ur Specific [place] 1.020 Urine Protein Neg Urine Glucose (UA) >=500 A Urine Ketones 80 A Urine Occult Blood Neg Urine Nitrate Neg Urine Bilirubin Neg Urine Urobilinogen Neg Ur Leukocyte Esterase Neg Urine RBC < 1 Urine WBC 4 Ur Squamous Epith Cells 0 Amorphous Crystals Urine Bacteria 0 Other Casts Few A Urine Mucus Few Ur Culture Indicated? No Urine Opiates Screen Ur Opiates Confirm Ur Oxycodone Screen Urine Methadone Screen Ur Methadone Confirm Ur Barbiturates Screen Ur Barbiturate Confirm Ur Phencyclidine Scrn Urine PCP Confirm Ur Amphetamines Screen U Amphetamines Confirm U Benzodiazepines Scrn U Benzodiazepine Confm Urine Cocaine Screen Urine Cocaine Confirm U Cannabinoids Confirm U Marijuana (THC) Screen 02/10/18 02/10/18 02/10/18 13:10 12:51 12:49 WBC RBC Hgb Hct MCV MCH MCHC RDW Plt Count MPV Gran % Lymph % (Auto) [place] % (Auto) Eos % (Auto) Baso % (Auto) Gran # Lymph # (Auto) [place] # (Auto) Eos # (Auto) Baso # (Auto) Total Counted Seg Neutrophils % Band Neutrophils % Lymphocytes % Monocytes % (Manual) Eosinophils % (Manual) Basophils % (Manual) Reactive Lymphocytes Platelet Estimate RBC Morphology ABG Methemoglobin VBG pH VBG pCO2 VBG pO2 VBG HCO3 VBG Total CO2 VBG O2 Saturation VBG Base Excess VBG Lactic Acid Carboxyhemoglobin Total Hemoglobin O2 Delivery Level Sodium 139 Potassium 3.6 Chloride 85 L Carbon Dioxide 14 L Anion Gap 40.0 H BUN Creatinine GFR Calculation Glucose Hemoglobin A1c Estim Average Glucose Uric Acid Calcium Phosphorus Magnesium 2.5 Total Bilirubin Direct Bilirubin GGT AST ALT Alkaline Phosphatase Lactate Dehydrogenase Total Protein Albumin Globulin Albumin/Globulin Ratio Triglycerides Beta-Hydroxybutyrate TSH 0.98 Urine Color Yellow Urine Appearance Cloudy Urine pH 5.0 Ur Specific [place] 1.020 Urine Protein 30 A Urine Glucose (UA) >=500 A Urine Ketones 80 A Urine Occult Blood 0.03 A Urine Nitrate Neg Urine Bilirubin Neg Urine Urobilinogen Neg Ur Leukocyte Esterase 75 A Urine RBC 1 Urine WBC 8 H Ur Squamous Epith Cells 8 H Amorphous Crystals Few A Urine Bacteria Few A Other Casts Urine Mucus Few Ur Culture Indicated? No Urine Opiates Screen None detected Ur Opiates Confirm Not Reportable Ur Oxycodone Screen None detected Urine Methadone Screen None detected Ur Methadone Confirm Not Reportable Ur Barbiturates Screen None detected Ur Barbiturate Confirm Not Reportable Ur Phencyclidine Scrn None detected Urine PCP Confirm Not Reportable Ur Amphetamines Screen None detected U Amphetamines Confirm Not Reportable U Benzodiazepines Scrn None detected U Benzodiazepine Confm Not Reportable Urine Cocaine Screen None detected Urine Cocaine Confirm Not Reportable U Cannabinoids Confirm Not Reportable U Marijuana (THC) Screen None detected 02/10/18 02/10/18 02/10/18 09:15 09:08 09:08 WBC RBC Hgb Hct MCV MCH MCHC RDW Plt Count MPV Gran % Lymph % (Auto) [place] % (Auto) Eos % (Auto) Baso % (Auto) Gran # Lymph # (Auto) [place] # (Auto) Eos # (Auto) Baso # (Auto) Total Counted Seg Neutrophils % Band Neutrophils % Lymphocytes % Monocytes % (Manual) Eosinophils % (Manual) Basophils % (Manual) Reactive Lymphocytes Platelet Estimate RBC Morphology ABG Methemoglobin VBG pH VBG pCO2 VBG pO2 VBG HCO3 VBG Total CO2 VBG O2 Saturation VBG Base Excess VBG Lactic Acid 3.2 H Carboxyhemoglobin Total Hemoglobin O2 Delivery Level Sodium 125 L Potassium 5.1 Chloride 69 L Carbon Dioxide 6 L* Anion Gap TNP BUN 37 H Creatinine 1.6 H GFR Calculation 45 Glucose 1119 H* Hemoglobin A1c > 16.6 H Estim Average Glucose 430 Uric Acid Calcium 10.7 H Phosphorus Magnesium Total Bilirubin 1.0 Direct Bilirubin GGT AST 23 ALT 37 Alkaline Phosphatase 199 H Lactate Dehydrogenase Total Protein 8.8 H Albumin 4.0 Globulin 4.8 H Albumin/Globulin Ratio 0.8 L Triglycerides Beta-Hydroxybutyrate 15.80 H TSH Urine Color Urine Appearance Urine pH Ur Specific [place] Urine Protein Urine Glucose (UA) Urine Ketones Urine Occult Blood Urine Nitrate Urine Bilirubin Urine Urobilinogen Ur Leukocyte Esterase Urine RBC Urine WBC Ur Squamous Epith Cells Amorphous Crystals Urine Bacteria Other Casts Urine Mucus Ur Culture Indicated? Urine Opiates Screen Ur Opiates Confirm Ur Oxycodone Screen Urine Methadone Screen Ur Methadone Confirm Ur Barbiturates Screen Ur Barbiturate Confirm Ur Phencyclidine Scrn Urine PCP Confirm Ur Amphetamines Screen U Amphetamines Confirm U Benzodiazepines Scrn U Benzodiazepine Confm Urine Cocaine Screen Urine Cocaine Confirm U Cannabinoids Confirm U Marijuana (THC) Screen 02/10/18 09:08 WBC RBC Hgb Hct MCV MCH MCHC RDW Plt Count MPV Gran % Lymph % (Auto) [place] % (Auto) Eos % (Auto) Baso % (Auto) Gran # Lymph # (Auto) [place] # (Auto) Eos # (Auto) Baso # (Auto) Total Counted Seg Neutrophils % Band Neutrophils % Lymphocytes % Monocytes % (Manual) Eosinophils % (Manual) Basophils % (Manual) Reactive Lymphocytes Platelet Estimate RBC Morphology ABG Methemoglobin VBG pH VBG pCO2 VBG pO2 VBG HCO3 VBG Total CO2 VBG O2 Saturation VBG Base Excess VBG Lactic Acid Carboxyhemoglobin Total Hemoglobin O2 Delivery Level Sodium Potassium Chloride Carbon Dioxide Anion Gap BUN Creatinine GFR Calculation Glucose Hemoglobin A1c Estim Average Glucose Uric Acid Calcium Phosphorus 11.8 H* Magnesium 2.9 H Total Bilirubin Direct Bilirubin GGT AST ALT Alkaline Phosphatase Lactate Dehydrogenase Total Protein Albumin Globulin Albumin/Globulin Ratio Triglycerides Beta-Hydroxybutyrate TSH Urine Color Urine Appearance Urine pH Ur Specific [place] Urine Protein Urine Glucose (UA) Urine Ketones Urine Occult Blood Urine Nitrate Urine Bilirubin Urine Urobilinogen Ur Leukocyte Esterase Urine RBC Urine WBC Ur Squamous Epith Cells Amorphous Crystals Urine Bacteria Other Casts Urine Mucus Ur Culture Indicated? Urine Opiates Screen Ur Opiates Confirm Ur Oxycodone Screen Urine Methadone Screen Ur Methadone Confirm Ur Barbiturates Screen Ur Barbiturate Confirm Ur Phencyclidine Scrn Urine PCP Confirm Ur Amphetamines Screen U Amphetamines Confirm U Benzodiazepines Scrn U Benzodiazepine Confm Urine Cocaine Screen Urine Cocaine Confirm U Cannabinoids Confirm U Marijuana (THC) Screen Medical - DS: A/P - Patient/Caregiver Discharge Instructions Activity: increase activity as tolerated Diet: Consistent Carbohydrate Additional Instructions: Follow-up with PCP in 3-7 days Prescriptions: Accu-Chek 1 each FS ACHS #90 strip Insulin Glargine, Human [Lantus] 40 unit SQ BID #1 unit Novolog Flexpen See Protocol SC ACHS #4 valACYclovir [Valtrex] 1,000 mg PO BID #12 tab - Follow up Plan Disposition: Home, Self-Care Prognosis: Fair Rehab Potential: Fair Medical - DS: Qual - VTE Deep Vein Thrombosis/Pulmonary Embolism Present on Admission: No
[2018-02-11 10:41] LABS: Appearance,Urine CLOUDY; Bilirubin,Urine NEG (NEG); Color,Urine YELLOW; Glucose,Urine (UA) 50 mg/dL (NEG); Leukocyte Esterase,Urine NEG /uL (NEG); Protein,Urine NEG (NEG); Specific Gravity,Urine 1.019 (1.000-1.035); Urine Blood NEG mg/dL (<0.03); Urobilinogen,Urine NEG (NEG)
[2018-02-11] MEDS ORDERED: INSULIN REGULAR, HUMAN 50 UNIT in 0.9 % SODIUM CHLORIDE 99.5 ML IV PRN (11:15)
[2018-02-11] MEDS: INSULIN LISPRO 1 UNIT/0.01 ML UNIT SQ SCH ×4 (12:24→21:29)
[2018-02-11] MEDS: PHOSPHORUS 250 MG TABLET PO SCH ×2 (13:03→21:28)
[2018-02-11] MEDS: valACYclovir 500 MG TABLET PO SCH ×2 (13:03→21:28)
[2018-02-11] MEDS ORDERED: INSULIN GLARGINE, HUMAN 1 UNIT/0.01 ML SQ SCH (21:00)
[2018-02-12] MEDS: INSULIN LISPRO 1 UNIT/0.01 ML UNIT SQ SCH ×9 (00:55→23:43)
[2018-02-12] MEDS: DEXTROSE 5%-1/2NS 1,000 ML IV SCH ×3 (00:56→11:19)
[2018-02-12] MEDS: valACYclovir 500 MG TABLET PO SCH ×3 (01:16→20:53)
[2018-02-12] MEDS: 0.45 % SODIUM CHLORIDE 1,000 ML IV SCH ×2 (03:57→11:51)
[2018-02-12 05:33] LABS: Mean Cell Volume 90.6 fL (80.0-100.0); Mean Corpuscular HGB Conc 33.9 g/dL (31.0-36.0); Mean Corpuscular Hemoglobin 30.7 pg (26.0-34.0); Platelet Count 390 K/mcL (140-440); RBC 3.77 M/mcL (4.00-5.20); Red Cell Distribution Width 12.6 % (11.5-14.5)
[2018-02-12] MEDS: 0.9 % SODIUM CHLORIDE 10 ML SYRINGE IV SCH ×3 (05:47→20:53)
[2018-02-12 05:52] LABS: ALT/SGPT 21 U/l (0-40); Albumin 2.7 gm/dL (3.2-5.2); Albumin/Globulin Ratio 0.8 (1.0-2.3); Alkaline Phosphatase 114 U/L (39-117); Bilirubin,Direct < 0.2 mg/dL (0.0-0.3); Blood Urea Nitrogen 9 mg/dl (6-20); Gamma Glutamyl Transpeptidase 32 U/L (5-36); Uric Acid 5.2 mg/dL (2.5-8.0)
--- NOTE | 2018-02-12 07:21 | Internal Med Progress Note ---
Medical - PN: Subj Patient information: Note initiated : 02/12/18 at 7:16 am Service Date, if different from initiated Date: [] Patient: Caryn Leyva a 22 y/o F admitted on 02/10/18 for Ran Out Of Insulin, Vomiting. Chief Complaint: [] Interval history: Ms. Leyva is a 22 year old F With history of DKA and substance abuse who was brought in by her friend. History is obtained from charts and a little bit from patient the patient is poorly responsive this time and will give accurate history. Reportedly patient ran out of insulin 3 days ago and in discussing this with the patient sounds like she was trying to get a hold of the physician. She does admit to using methamphetamines IV 3 days ago. She presented ED after also having some nausea vomiting. She is quite lethargic. Her blood glucose was 1100 with a bicarb of 6. She has a significant needle track marking in her upper extremities. She says she also uses legs and possibly neck at one point. Multiple peripheral IV sticks were attempted and subsequently a central line was placed by anesthesia. She was given IV fluid bolus and started on insulin drip. 02/11 Sleeping this morning difficult to arouse. Was refusing to talk to nurses earlier. When they try to open her eyes she closed them tighter. Was up pulling at lines she had to be placed in soft restraints and given some Haldol last night. Possible herpetic lesions in the genitalia. Unable to gather review review of systems 02/12 Started waking up more yesterday afternoon. Sleeping when I went into her room this morning but easily arousable answering questions. No complaints no nausea vomiting abdominal pain. She states she has not seen her primary care provider for over a year and that she gets her insulin by coming into the ER wants well and getting refills. She does not check her blood glucose at home. She takes NovoLog according to her carb intake. Review of Systems: denies headache/fever/chills/nausea/vomiting/chest or abdominal pain/cough/ dyspnea/diarrhea. Otherwise see above. - Constitutional Vitals: Vital Signs Temp Pulse Resp BP Pulse Ox 99.0 F 102 H 14 121/68 97 02/12/18 04:01 02/12/18 06:13 02/12/18 06:13 02/12/18 06:01 02/12/18 06:13 Period Temp Pulse Resp BP Sys/Bartlett Pulse Ox Last 24 Hr 98.8 F-99.0 F 100-117 11-27 107-130/58-82 96-100 Intake and Output 02/11/18 02/12/18 02/12/18 21:59 05:59 13:59 Intake Total 2310 / 2310 400 / 400 Output Total 1265 / 1265 1200 / 1200 50 / 50 Balance 1045 / 1045 -1200 / -1200 350 / 350 Weight 73.799 kg Intake & Output: Intake & Output 02/11/18 02/12/18 02/12/18 21:59 05:59 13:59 Intake Total 2310 / 2310 400 / 400 Output Total 1265 / 1265 1200 / 1200 50 / 50 Balance 1045 / 1045 -1200 / -1200 350 / 350 Weight 73.799 kg Intake: IV 1780 / 1780 Sodium Chloride 0.45% 1,000 ml 1000 / 1000 @ 100 mls/hr IV .Q10H [facility] Rx#: [id number] Oral 530 / 530 GI Tube Flush 400 / 400 Output: Urine Catheter Amount 1265 / 1265 1200 / 1200 50 / 50 Other: Meal Dinner Percent of Meal Consumed 25% Feeding Ability Assist with Tray Set Up Urine Appearance Clear Clear Uretheral (Burton) Clear Clear Urine Color Bright Yellow Bright Yellow Uretheral (Burton) Bright Yellow Bright Yellow Stool Size Copious Stool Color Brown Stool Consistency Formed # Bowel Movements 1 Exam: General: Somnolent but easily arousable no acute distress Eyes/N/T: EOMI Head/Neck: neck supple, CV: RRR, No murmurs, normal s1/s2 Pulm: Clear b/l, no wheezing/rhonchi/rales Abd: soft, nontender, +BS x4 Ext: no clubbing/cyanosis/edema Neuro: Somnolent, arousable, answers questions appropriately and follows commands moves all extremities skin: warm/dry, significant needle track concepcion bilateral upper extremities and lower extremities Medical - PN: Obj Da - Labs CBC & Chem 7: 02/12/18 04:20 02/12/18 04:20 Labs: Abnormal Lab Results 02/12/18 02/12/18 02/11/18 04:20 04:20 09:44 WBC 14.1 H RBC 3.77 L Hgb 11.6 L Hct 34.1 L POC Hct Plt Count MPV 7.0 L Gran % Lymph % (Auto) Gran # [place] # (Auto) ABG Methemoglobin VBG pCO2 VBG pO2 VBG HCO3 VBG Total CO2 VBG O2 Saturation VBG Base Excess VBG Lactic Acid Carboxyhemoglobin POC Sodium Sodium Potassium POC Chloride Chloride Carbon Dioxide POC Total CO2 Anion Gap POC BUN BUN Creatinine Glucose 128 H POC Glucose Hemoglobin A1c Uric Acid Calcium 8.4 L Phosphorus 1.9 L Magnesium GGT Alkaline Phosphatase Total Protein Albumin 2.7 L Globulin Albumin/Globulin Ratio 0.8 L Triglycerides Beta-Hydroxybutyrate Urine Protein Urine Glucose (UA) 50 A Urine Ketones 20 A Urine Occult Blood Ur Leukocyte Esterase Urine WBC Ur Squamous Epith Cells Amorphous Crystals Urine Bacteria Other Casts 02/11/18 02/11/18 02/10/18 03:21 03:21 20:07 WBC 20.4 H RBC Hgb Hct POC Hct Plt Count 518 H MPV 7.1 L Gran % Lymph % (Auto) Gran # 15.3 H [place] # (Auto) 1.0 H ABG Methemoglobin VBG pCO2 VBG pO2 VBG HCO3 VBG Total CO2 VBG O2 Saturation VBG Base Excess VBG Lactic Acid Carboxyhemoglobin POC Sodium Sodium Potassium 3.2 L POC Chloride Chloride 93 L Carbon Dioxide POC Total CO2 Anion Gap 21.0 H POC BUN BUN Creatinine Glucose 211 H POC Glucose Hemoglobin A1c Uric Acid 9.5 H Calcium 8.4 L Phosphorus 1.4 L Magnesium GGT Alkaline Phosphatase 123 H Total Protein Albumin 3.1 L Globulin Albumin/Globulin Ratio 0.9 L Triglycerides 157 H Beta-Hydroxybutyrate Urine Protein Urine Glucose (UA) Urine Ketones Urine Occult Blood Ur Leukocyte Esterase Urine WBC Ur Squamous Epith Cells Amorphous Crystals Urine Bacteria Other Casts 02/10/18 02/10/18 02/10/18 16:58 14:15 13:29 WBC RBC Hgb Hct POC Hct Plt Count MPV Gran % Lymph % (Auto) Gran # [place] # (Auto) ABG Methemoglobin 0.3 L VBG pCO2 33.3 L VBG pO2 73 H VBG HCO3 18.5 L VBG Total CO2 19.5 L VBG O2 Saturation 90.0 H VBG Base Excess -5.9 L VBG Lactic Acid Carboxyhemoglobin 2.6 H POC Sodium Sodium Potassium POC Chloride Chloride 85 L Carbon Dioxide 13 L POC Total CO2 Anion Gap 40.0 H POC BUN BUN 40 H Creatinine 1.6 H Glucose 644 H* POC Glucose Hemoglobin A1c Uric Acid 12.4 H Calcium Phosphorus 6.1 H* Magnesium GGT 46 H Alkaline Phosphatase 175 H Total Protein Albumin Globulin 4.2 H Albumin/Globulin Ratio 0.9 L Triglycerides 388 H Beta-Hydroxybutyrate Urine Protein Urine Glucose (UA) >=500 A Urine Ketones 80 A Urine Occult Blood Ur Leukocyte Esterase Urine WBC Ur Squamous Epith Cells Amorphous Crystals Urine Bacteria Other Casts Few A 02/10/18 02/10/18 02/10/18 13:10 13:10 12:49 WBC RBC Hgb Hct POC Hct Plt Count MPV Gran % Lymph % (Auto) Gran # [place] # (Auto) ABG Methemoglobin 0.3 L VBG pCO2 28.6 L VBG pO2 71 H VBG HCO3 14.5 L VBG Total CO2 15.3 L VBG O2 Saturation 90.3 H VBG Base Excess -10.0 L VBG Lactic Acid Carboxyhemoglobin 2.9 H POC Sodium Sodium Potassium POC Chloride Chloride 85 L Carbon Dioxide 14 L POC Total CO2 Anion Gap 40.0 H POC BUN BUN Creatinine Glucose POC Glucose Hemoglobin A1c Uric Acid Calcium Phosphorus Magnesium GGT Alkaline Phosphatase Total Protein Albumin Globulin Albumin/Globulin Ratio Triglycerides Beta-Hydroxybutyrate Urine Protein 30 A Urine Glucose (UA) >=500 A Urine Ketones 80 A Urine Occult Blood 0.03 A Ur Leukocyte Esterase 75 A Urine WBC 8 H Ur Squamous Epith Cells 8 H Amorphous Crystals Few A Urine Bacteria Few A Other Casts 02/10/18 02/10/18 02/10/18 09:15 09:15 09:08 WBC 19.2 H RBC Hgb 15.4 H Hct POC Hct 51.0 H Plt Count 628 H MPV Gran % 82.0 H Lymph % (Auto) 15.0 L Gran # 15.7 H [place] # (Auto) ABG Methemoglobin VBG pCO2 VBG pO2 VBG HCO3 VBG Total CO2 VBG O2 Saturation VBG Base Excess VBG Lactic Acid Carboxyhemoglobin POC Sodium 123 L Sodium 125 L Potassium POC Chloride 84 L Chloride 69 L Carbon Dioxide 6 L* POC Total CO2 9 L* Anion Gap POC BUN 38 H BUN 37 H Creatinine 1.6 H Glucose 1119 H* POC Glucose > 700 H* Hemoglobin A1c > 16.6 H Uric Acid Calcium 10.7 H Phosphorus Magnesium GGT Alkaline Phosphatase 199 H Total Protein 8.8 H Albumin Globulin 4.8 H Albumin/Globulin Ratio 0.8 L Triglycerides Beta-Hydroxybutyrate 15.80 H Urine Protein Urine Glucose (UA) Urine Ketones Urine Occult Blood Ur Leukocyte Esterase Urine WBC Ur Squamous Epith Cells Amorphous Crystals Urine Bacteria Other Casts 02/10/18 02/10/18 09:08 09:08 WBC RBC Hgb Hct POC Hct Plt Count MPV Gran % Lymph % (Auto) Gran # [place] # (Auto) ABG Methemoglobin VBG pCO2 VBG pO2 VBG HCO3 VBG Total CO2 VBG O2 Saturation VBG Base Excess VBG Lactic Acid 3.2 H Carboxyhemoglobin POC Sodium Sodium Potassium POC Chloride Chloride Carbon Dioxide POC Total CO2 Anion Gap POC BUN BUN Creatinine Glucose POC Glucose Hemoglobin A1c Uric Acid Calcium Phosphorus 11.8 H* Magnesium 2.9 H GGT Alkaline Phosphatase Total Protein Albumin Globulin Albumin/Globulin Ratio Triglycerides Beta-Hydroxybutyrate Urine Protein Urine Glucose (UA) Urine Ketones Urine Occult Blood Ur Leukocyte Esterase Urine WBC Ur Squamous Epith Cells Amorphous Crystals Urine Bacteria Other Casts Meds: Medications Acetaminophen (Tylenol) 650 mg PO Q6HP PRN PRN Reason: PAIN/FEVER > 101 Diagnostic Test (Pha) (Accu-Chek) 1 each FS Q1 [facility] Last Admin: 02/12/18 07:08 Dose: 1 each Enoxaparin Sodium (Lovenox) 40 mg SQ DAILY [facility] Last Admin: 02/11/18 09:41 Dose: 40 mg Dextrose/Sodium Chloride (Dextrose 5%-1/2ns Iv Solution) 1,000 mls @ 200 mls/ hr IV .Q5H [facility] Last Admin: 02/12/18 05:46 Dose: Not Given Sodium Chloride (Sodium Chloride 0.45%) 1,000 mls @ 100 mls/hr IV .Q10H [facility] Last Admin: 02/12/18 03:57 Dose: 100 mls/hr Insulin Human Regular 50 unit/ (Sodium Chloride) 100 mls @ 0 mls/hr IV Q12HP PRN; Protocol PRN Reason: HYPERGLYCEMIA Insulin Glargine (Lantus) 30 unit SQ BID [facility] Last Admin: 02/11/18 21:29 Dose: 30 unit Insulin Human Lispro (Humalog) 0 unit SQ Q3 [facility]; Protocol Last Admin: 02/12/18 05:46 Dose: 9 units Lorazepam (Ativan) 1 mg IV Q4HP PRN PRN Reason: Anxiety/Sedation & Meth W/D Last Admin: 02/11/18 00:10 Dose: 1 mg Sodium Chloride (Saline Flush) 10 ml IV Q8 [facility] Last Admin: 02/12/18 05:47 Dose: 10 ml Valacyclovir HCl (Valtrex) 1,000 mg PO BID [facility] Stop: 02/17/18 21:01 Last Admin: 02/12/18 01:16 Dose: Not Given - ABG Interpretation ABG results: 02/10/18 02/10/18 13:10 16:58 ABG Methemoglobin 0.3 L 0.3 L VBG pH 7.32 7.36 VBG pCO2 28.6 L 33.3 L VBG pO2 71 H 73 H VBG HCO3 14.5 L 18.5 L VBG Total CO2 15.3 L 19.5 L VBG O2 Saturation 90.3 H 90.0 H VBG Base Excess -10.0 L -5.9 L Medical - PN: A/P - Time Spent With Patient Total time spent is greater than 50% in coordination of care (as documented) at patient's floor/unit and/or counseling patient: - Narrative A/P Narrative: A: *DKA: Secondary to running out of home insulin -A1c>16 *Encephalopathy: Secondary to above. resolved *Substance abuse: With methamphetamines IV -UDS unremarkable, pt admitted to using meth 3 days ago *HINA: resolved *Neuropathy *hypophos: P: -on home basal insulin(increase) and SSI -IVF's stop, ADA diet -PRN Ativan for methamphetamine withdrawal - -Case management for substance abuse programs and options for living -Smoking cessation counseling -ppx: Lovenox Medical - PN: Qual - VTE Deep Vein Thrombosis/Pulmonary Embolism Present on Admission: No
[2018-02-12 08:08] LABS: Band Neutrophils % 4 % (0-10); Basophils % (Manual) 1 % (0-2); Eosinophils % (Manual) 4 % (0-7); Lymphocytes % 27 % (15-49); Monocytes % (Manual) 9 % (1-12); Platelet Estimate NORMAL (NORMAL); RBC Morphology NORMAL (NORMAL); Segmented Neutrophils % 55 % (38-78)
[2018-02-12] MEDS ORDERED: INSULIN GLARGINE, HUMAN 1 UNIT/0.01 ML SQ SCH ×3 (09:00→21:00)
[2018-02-12] MEDS ORDERED: PHOSPHORUS 250 MG TABLET PO SCH ×2 (09:00→21:00)
[2018-02-12] MEDS: ENOXAPARIN 40 MG/0.4 ML SYRINGE SQ SCH (09:25)
[2018-02-12] MEDS ORDERED: ACETAMINOPHEN 325 MG TABLET PO PRN (10:45)
[2018-02-12] MEDS ORDERED: LORazepam 2 MG/ML VIAL IV PRN (10:45)
[2018-02-12] MEDS ORDERED: INSULIN REGULAR, HUMAN 50 UNIT in 0.9 % SODIUM CHLORIDE 99.5 ML IV PRN (10:45)
[2018-02-13] MEDS: INSULIN LISPRO 1 UNIT/0.01 ML UNIT SQ SCH ×4 (03:14→12:13)
[2018-02-13 03:49] LABS: Basophils # (Auto) 0 K/mcL (0.0-0.3); Basophils % (Auto) 0.4 % (0.0-2.0); Eosinophils # (Auto) 0.4 K/mcL (0.0-0.7); Eosinophils % (Auto) 4.6 % (0.0-7.0); Granulocytes % (Auto) 42.5 % (38.0-78.0); Lymphocytes # (Auto) 3.4 K/mcL (1.5-4.8); Lymphocytes % (Auto) 43.8 % (15.5-49.0); Mean Cell Volume 88.9 fL (80.0-100.0); Mean Corpuscular HGB Conc 34.5 g/dL (31.0-36.0); Mean Corpuscular Hemoglobin 30.6 pg (26.0-34.0); Monocytes # (Auto) 0.7 K/mcL (0.1-0.9); Monocytes % (Auto) 8.7 % (1.0-12.0); Platelet Count 356 K/mcL (140-440); RBC 3.78 M/mcL (4.00-5.20); Red Cell Distribution Width 12.6 % (11.5-14.5)
[2018-02-13 04:11] LABS: ALT/SGPT 23 U/l (0-40); Albumin/Globulin Ratio 0.9 (1.0-2.3); Alkaline Phosphatase 104 U/L (39-117); Bilirubin,Direct < 0.2 mg/dL (0.0-0.3); Blood Urea Nitrogen 8 mg/dl (6-20); Gamma Glutamyl Transpeptidase 31 U/L (5-36); Uric Acid 3.5 mg/dL (2.5-8.0)
[2018-02-13] MEDS: 0.9 % SODIUM CHLORIDE 10 ML SYRINGE IV SCH (05:45)
[2018-02-13] MEDS ORDERED: POTASSIUM CHLORIDE 20 MEQ TABLET PO ONE (07:43)
--- NOTE | 2018-02-13 07:44 | Internal Med Progress Note ---
Medical - PN: Subj Patient information: Note initiated : 02/13/18 at 7:40 am Service Date, if different from initiated Date: [] Patient: Caryn Leyva a 23 y/o F admitted on 02/10/18 for Ran Out Of Insulin, Vomiting. Chief Complaint: [] Interval history: Ms. Leyva is a 22 year old F With history of DKA and substance abuse who was brought in by her friend. History is obtained from charts and a little bit from patient the patient is poorly responsive this time and will give accurate history. Reportedly patient ran out of insulin 3 days ago and in discussing this with the patient sounds like she was trying to get a hold of the physician. She does admit to using methamphetamines IV 3 days ago. She presented ED after also having some nausea vomiting. She is quite lethargic. Her blood glucose was 1100 with a bicarb of 6. She has a significant needle track marking in her upper extremities. She says she also uses legs and possibly neck at one point. Multiple peripheral IV sticks were attempted and subsequently a central line was placed by anesthesia. She was given IV fluid bolus and started on insulin drip. 02/11 Sleeping this morning difficult to arouse. Was refusing to talk to nurses earlier. When they try to open her eyes she closed them tighter. Was up pulling at lines she had to be placed in soft restraints and given some Haldol last night. Possible herpetic lesions in the genitalia. Unable to gather review review of systems 02/12 Started waking up more yesterday afternoon. Sleeping when I went into her room this morning but easily arousable answering questions. No complaints no nausea vomiting abdominal pain. She states she has not seen her primary care provider for over a year and that she gets her insulin by coming into the ER wants well and getting refills. She does not check her blood glucose at home. She takes NovoLog according to her carb intake. 02/13 Feeling better. No overnight events. No new complaints Review of Systems: denies headache/fever/chills/nausea/vomiting/chest or abdominal pain/cough/ dyspnea/diarrhea. Otherwise see above. - Constitutional Vitals: Vital Signs Temp Pulse Resp BP Pulse Ox 98.7 F 98 H 16 115/68 96 02/13/18 04:00 02/13/18 04:00 02/13/18 04:00 02/13/18 04:00 02/13/18 04:00 Period Temp Pulse Resp BP Sys/Bartlett Pulse Ox Last 24 Hr 97.5 F-99.1 F 97-108 14-19 115-125/66-72 96-99 Intake and Output 02/12/18 02/13/18 02/13/18 21:59 05:59 13:59 Intake Total 2940 / 2940 2120 / 2120 Output Total 5500 / 5500 1450 / 1450 Balance -2560 / -2560 670 / 670 Weight 73.028 kg Intake & Output: Intake & Output 02/12/18 02/13/18 02/13/18 21:59 05:59 13:59 Intake Total 2940 / 2940 2120 / 2120 Output Total 5500 / 5500 1450 / 1450 Balance -2560 / -2560 670 / 670 Weight 73.028 kg Intake: Oral 2940 / 2940 2120 / 2120 Output: Urine Catheter Amount 5500 / 5500 Void Amount 1450 / 1450 Other: Meal Dinner Nourishment/Supplement Percent of Meal Consumed 100% Feeding Ability Independent Urine Appearance Cloudy Uretheral (Burton) Clear Urine Color Pale Uretheral (Burton) Pale Urine Odor Normal Exam: General: drowsy by easily awakens, no acute distress Eyes/N/T: EOMI Head/Neck: neck supple, CV: RRR, No murmurs, normal s1/s2 Pulm: Clear b/l, no wheezing/rhonchi/rales Abd: soft, nontender, +BS x4 Ext: no clubbing/cyanosis/edema Neuro: awake, no focal deficits, moves all extremities skin: warm/dry, significant needle track concepcion bilateral upper extremities and lower extremities Medical - PN: Obj Da - Labs CBC & Chem 7: 02/13/18 03:25 02/13/18 03:25 Labs: Abnormal Lab Results 02/13/18 02/13/18 02/12/18 03:25 03:25 04:20 WBC RBC 3.78 L Hgb 11.6 L Hct 33.6 L POC Hct Plt Count MPV 6.9 L Gran % Lymph % (Auto) Gran # [place] # (Auto) ABG Methemoglobin VBG pCO2 VBG pO2 VBG HCO3 VBG Total CO2 VBG O2 Saturation VBG Base Excess VBG Lactic Acid Carboxyhemoglobin POC Sodium Sodium Potassium 3.1 L POC Chloride Chloride Carbon Dioxide POC Total CO2 Anion Gap POC BUN BUN Creatinine 0.5 L Glucose 128 H POC Glucose Hemoglobin A1c Uric Acid Calcium 8.4 L Phosphorus 2.6 L 1.9 L Magnesium GGT Alkaline Phosphatase Total Protein Albumin 3.0 L 2.7 L Globulin Albumin/Globulin Ratio 0.9 L 0.8 L Triglycerides Beta-Hydroxybutyrate Urine Protein Urine Glucose (UA) Urine Ketones Urine Occult Blood Ur Leukocyte Esterase Urine WBC Ur Squamous Epith Cells Amorphous Crystals Urine Bacteria Other Casts 02/12/18 02/11/18 02/11/18 04:20 09:44 03:21 WBC 14.1 H RBC 3.77 L Hgb 11.6 L Hct 34.1 L POC Hct Plt Count MPV 7.0 L Gran % Lymph % (Auto) Gran # [place] # (Auto) ABG Methemoglobin VBG pCO2 VBG pO2 VBG HCO3 VBG Total CO2 VBG O2 Saturation VBG Base Excess VBG Lactic Acid Carboxyhemoglobin POC Sodium Sodium Potassium POC Chloride Chloride Carbon Dioxide POC Total CO2 Anion Gap POC BUN BUN Creatinine Glucose 211 H POC Glucose Hemoglobin A1c Uric Acid 9.5 H Calcium 8.4 L Phosphorus 1.4 L Magnesium GGT Alkaline Phosphatase 123 H Total Protein Albumin 3.1 L Globulin Albumin/Globulin Ratio 0.9 L Triglycerides 157 H Beta-Hydroxybutyrate Urine Protein Urine Glucose (UA) 50 A Urine Ketones 20 A Urine Occult Blood Ur Leukocyte Esterase Urine WBC Ur Squamous Epith Cells Amorphous Crystals Urine Bacteria Other Casts 02/11/18 02/10/18 02/10/18 03:21 20:07 16:58 WBC 20.4 H RBC Hgb Hct POC Hct Plt Count 518 H MPV 7.1 L Gran % Lymph % (Auto) Gran # 15.3 H Bre[place] # (Auto) 1.0 H ABG Methemoglobin 0.3 L VBG pCO2 33.3 L VBG pO2 73 H VBG HCO3 18.5 L VBG Total CO2 19.5 L VBG O2 Saturation 90.0 H VBG Base Excess -5.9 L VBG Lactic Acid Carboxyhemoglobin 2.6 H POC Sodium Sodium Potassium 3.2 L POC Chloride Chloride 93 L Carbon Dioxide POC Total CO2 Anion Gap 21.0 H POC BUN BUN Creatinine Glucose POC Glucose Hemoglobin A1c Uric Acid Calcium Phosphorus Magnesium GGT Alkaline Phosphatase Total Protein Albumin Globulin Albumin/Globulin Ratio Triglycerides Beta-Hydroxybutyrate Urine Protein Urine Glucose (UA) Urine Ketones Urine Occult Blood Ur Leukocyte Esterase Urine WBC Ur Squamous Epith Cells Amorphous Crystals Urine Bacteria Other Casts 02/10/18 02/10/18 02/10/18 14:15 13:29 13:10 WBC RBC Hgb Hct POC Hct Plt Count MPV Gran % Lymph % (Auto) Gran # [place] # (Auto) ABG Methemoglobin 0.3 L VBG pCO2 28.6 L VBG pO2 71 H VBG HCO3 14.5 L VBG Total CO2 15.3 L VBG O2 Saturation 90.3 H VBG Base Excess -10.0 L VBG Lactic Acid Carboxyhemoglobin 2.9 H POC Sodium Sodium Potassium POC Chloride Chloride 85 L Carbon Dioxide 13 L POC Total CO2 Anion Gap 40.0 H POC BUN BUN 40 H Creatinine 1.6 H Glucose 644 H* POC Glucose Hemoglobin A1c Uric Acid 12.4 H Calcium Phosphorus 6.1 H* Magnesium GGT 46 H Alkaline Phosphatase 175 H Total Protein Albumin Globulin 4.2 H Albumin/Globulin Ratio 0.9 L Triglycerides 388 H Beta-Hydroxybutyrate Urine Protein Urine Glucose (UA) >=500 A Urine Ketones 80 A Urine Occult Blood Ur Leukocyte Esterase Urine WBC Ur Squamous Epith Cells Amorphous Crystals Urine Bacteria Other Casts Few A 02/10/18 02/10/18 02/10/18 13:10 12:49 09:15 WBC RBC Hgb Hct POC Hct 51.0 H Plt Count MPV Gran % Lymph % (Auto) Gran # [place] # (Auto) ABG Methemoglobin VBG pCO2 VBG pO2 VBG HCO3 VBG Total CO2 VBG O2 Saturation VBG Base Excess VBG Lactic Acid Carboxyhemoglobin POC Sodium 123 L Sodium 125 L Potassium POC Chloride 84 L Chloride 85 L 69 L Carbon Dioxide 14 L 6 L* POC Total CO2 9 L* Anion Gap 40.0 H POC BUN 38 H BUN 37 H Creatinine 1.6 H Glucose 1119 H* POC Glucose > 700 H* Hemoglobin A1c Uric Acid Calcium 10.7 H Phosphorus Magnesium GGT Alkaline Phosphatase 199 H Total Protein 8.8 H Albumin Globulin 4.8 H Albumin/Globulin Ratio 0.8 L Triglycerides Beta-Hydroxybutyrate 15.80 H Urine Protein 30 A Urine Glucose (UA) >=500 A Urine Ketones 80 A Urine Occult Blood 0.03 A Ur Leukocyte Esterase 75 A Urine WBC 8 H Ur Squamous Epith Cells 8 H Amorphous Crystals Few A Urine Bacteria Few A Other Casts 02/10/18 02/10/18 02/10/18 09:15 09:08 09:08 WBC 19.2 H RBC Hgb 15.4 H Hct POC Hct Plt Count 628 H MPV Gran % 82.0 H Lymph % (Auto) 15.0 L Gran # 15.7 H Bre[place] # (Auto) ABG Methemoglobin VBG pCO2 VBG pO2 VBG HCO3 VBG Total CO2 VBG O2 Saturation VBG Base Excess VBG Lactic Acid 3.2 H Carboxyhemoglobin POC Sodium Sodium Potassium POC Chloride Chloride Carbon Dioxide POC Total CO2 Anion Gap POC BUN BUN Creatinine Glucose POC Glucose Hemoglobin A1c > 16.6 H Uric Acid Calcium Phosphorus Magnesium GGT Alkaline Phosphatase Total Protein Albumin Globulin Albumin/Globulin Ratio Triglycerides Beta-Hydroxybutyrate Urine Protein Urine Glucose (UA) Urine Ketones Urine Occult Blood Ur Leukocyte Esterase Urine WBC Ur Squamous Epith Cells Amorphous Crystals Urine Bacteria Other Casts 02/10/18 09:08 WBC RBC Hgb Hct POC Hct Plt Count MPV Gran % Lymph % (Auto) Gran # [place] # (Auto) ABG Methemoglobin VBG pCO2 VBG pO2 VBG HCO3 VBG Total CO2 VBG O2 Saturation VBG Base Excess VBG Lactic Acid Carboxyhemoglobin POC Sodium Sodium Potassium POC Chloride Chloride Carbon Dioxide POC Total CO2 Anion Gap POC BUN BUN Creatinine Glucose POC Glucose Hemoglobin A1c Uric Acid Calcium Phosphorus 11.8 H* Magnesium 2.9 H GGT Alkaline Phosphatase Total Protein Albumin Globulin Albumin/Globulin Ratio Triglycerides Beta-Hydroxybutyrate Urine Protein Urine Glucose (UA) Urine Ketones Urine Occult Blood Ur Leukocyte Esterase Urine WBC Ur Squamous Epith Cells Amorphous Crystals Urine Bacteria Other Casts Meds: Medications Acetaminophen (Tylenol) 650 mg PO Q6HP PRN PRN Reason: PAIN/FEVER > 101 Diagnostic Test (Pha) (Accu-Chek) 1 each FS Q3 [facility] Last Admin: 02/13/18 05:45 Dose: 1 each Enoxaparin Sodium (Lovenox) 40 mg SQ DAILY [facility] Insulin Human Regular 50 unit/ (Sodium Chloride) 100 mls @ 0 mls/hr IV Q12HP PRN; Protocol PRN Reason: HYPERGLYCEMIA Insulin Glargine (Lantus) 50 unit SQ BID [facility] Last Admin: 02/12/18 20:51 Dose: 50 unit Insulin Human Lispro (Humalog) 0 unit SQ Q3 [facility]; Protocol Last Admin: 02/13/18 05:46 Dose: Not Given Lorazepam (Ativan) 1 mg IV Q4HP PRN PRN Reason: Anxiety/Sedation & Meth W/D Last Admin: 02/13/18 01:37 Dose: 1 mg Sodium Chloride (Saline Flush) 10 ml IV Q8 [facility] Last Admin: 02/13/18 05:45 Dose: 10 ml Valacyclovir HCl (Valtrex) 1,000 mg PO BID [facility] Stop: 02/17/18 21:01 Last Admin: 02/12/18 20:53 Dose: 1,000 mg - ABG Interpretation ABG results: 02/10/18 02/10/18 13:10 16:58 ABG Methemoglobin 0.3 L 0.3 L VBG pH 7.32 7.36 VBG pCO2 28.6 L 33.3 L VBG pO2 71 H 73 H VBG HCO3 14.5 L 18.5 L VBG Total CO2 15.3 L 19.5 L VBG O2 Saturation 90.3 H 90.0 H VBG Base Excess -10.0 L -5.9 L Medical - PN: A/P - Time Spent With Patient Total time spent is greater than 50% in coordination of care (as documented) at patient's floor/unit and/or counseling patient: - Narrative A/P Narrative: A: *DKA: Secondary to running out of home insulin -A1c>16 *Encephalopathy: Secondary to above. resolved *Substance abuse: With methamphetamines IV -UDS unremarkable, pt admitted to using meth 3 days ago *HINA: resolved *Neuropathy *hypophos: improved P: -on home basal insulin(increased) and SSI -IVF's stop, ADA diet -PRN Ativan for methamphetamine withdrawal -QBH -Case management for substance abuse programs and options for living -Smoking cessation counseling -ppx: Lovenox d/c planning Medical - PN: Qual - VTE Deep Vein Thrombosis/Pulmonary Embolism Present on Admission: No
[2018-02-13] MEDS: valACYclovir 500 MG TABLET PO SCH (08:21)
[2018-02-13] MEDS ORDERED: INSULIN GLARGINE, HUMAN 1 UNIT/0.01 ML SQ SCH (09:00)
[2018-02-13] MEDS ORDERED: ENOXAPARIN 40 MG/0.4 ML SYRINGE SQ SCH (09:00)
== END 2018-02-13 12:45 | disposition home or self-care (01) | DRG 638 ==
LOC: ED 08:49 → ICU 12:57 → MEDSUR 02-12 11:07
PROVIDERS: ADMIT Internal Medicine; ATTEND Internal Medicine
CPT/HCPCS: 80047; 82010; 85014; 87255; 99223; 99231; C1751; J1630; J1650; J1815; J1817; J2060; J3480; J7030; J7042; J7050; J7060; J7120